=== PATIENT | female | born 2000 | race Caucasian/White ===

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

== ENCOUNTER 2022-04-07 10:39 | Inpatient (IN) | payer BC, MEDICAID ==
[2022-04-07] VITALS (29 sets, daily range): BP systolic 93–142; BP diastolic 51–87
[~2022-04-07] VITALS: Ht 177.8 cm; Wt 83.1 kg
[2022-04-07] MEDS ORDERED: fentaNYL INJ 100 MCG/2 ML AMP ONE ×3 (10:55→13:48)
[2022-04-07] MEDS ORDERED: WATER (STERILE) FOR INJECTION 20 ML ONE (11:08)
[2022-04-07] MEDS ORDERED: AMPICILLIN 2,000 MG/14.8 ML (IV USE) ONE (11:08)
[2022-04-07] MEDS ORDERED: D5 LR IV SOLUTION 1,000 ML IV ONE (11:08)
--- NOTE | 2022-04-07 11:11 | History & Physical-OB ---
OB - Chief Complaint & HPI Date/Time Date of Admission: Date of Admission: Apr 07, 2022 at 10:39 Date seen by a Provider: Apr 07, 2022 Time Seen by a Provider: 11:15 Chief Complaint/History OB-Reason for Admission/Chief: Onset of Labor Hx : 1 Hx Para: 0 Expected Date of Delivery: Mar 26, 2022 Gestational Age in Weeks: 41 Gestational Age in Days: 5 History of Labs O neg, antibody neg, RI. HIV/HepB/RPR NR. GC/chlamydia neg. GBS pos. Allergies and Home Medications Allergies Coded Allergies: No Known Drug Allergies (Unverified , 08/03/16) Patient Home Medication List Home Medication List Reviewed: Yes Discontinued Medications Cephalexin (Keflex) 500 Mg Capsule, 500 MG PO QID Prescribed by: RACHEL SMITH on 08/03/16620 Last Action: Discontinued Fluticasone Propionate (Fluticasone Propionate) 16 Gm [place].susp, (Reported) Entered as Reported by: CARMEN HUITRON on 08/03/16539 Last Action: Discontinued Hydroxyzine HCl (Hydroxyzine HCl) 25 Mg Tablet, (Reported) Entered as Reported by: CARMEN HUITRON on 08/03/16539 Last Action: Discontinued OB - History Hx of Present Care: Yes Ultrasounds: Normal mid trimester US Information Induced Hypertension: No Maternal Gestational Diabetes: No Obstetrical History Hx : 1 Hx Para: 0 Hx # Term Pregnancies: 0 Hx # Pregnancies: 0 Number of Living Children: 0 Hx Multiple Gestation: No Hx Ectopic : No Hx Stillbirth: No Hx Complication: No Hx Induced Hypertens: No Hx Maternal Gestational Diabet: No Delivery History Hx Blood Disorders: Yes (anemia) Adverse Rxn to Tranfusion: No Patient Past Medical History PMHx: Depression Anxiety IBS Gastric ulcer SurgHx: EGD Colonoscopy Social History/Family History Alcohol Use: Denies Use Recreational Drug Use: No Smoking Cessation: Former smoker Immunizations Tetanus Booster (TDap): Less than 5yrs (01/18/2022) Rubella: immune RPR/VDRL: Negative GBS Status: Positive HBsAG: Negative OB - Admission Exam Physical Exam HEENT: NCAT Abdomen: Gravid Cervical Dilatation: 6cm Effacement: Other (80) Station: -1 Membranes: Intact Heart Rate: 130's Accelerations: Accelerations Present Short Term Variability: Present [place] Variability: Average (6-25) Contractions on Admission: < 5 Minutes Apart OB - Assessment/Plan/Diagnosis Assessment Admission Dx Term intrauterine at 41 weeks and 5 days Active labor Group B strep carrier O negative blood type Admission Status: Inpatient Order (span 2 midnights) Reason for Inpatient Admission: Labor, delivery and postpatum course Plan Plan: Expectant Management, Other (ampicillin for GBS positive status) PRADIP DE ANDA MD Apr 07, 2022 11:11
[2022-04-07] MEDS ORDERED: AMPICILLIN FOR IV USE 2,000 MG in NS (IVPB) 50 ML IV SCH (11:26)
[2022-04-07] MEDS ORDERED: fentaNYL INJ 100 MCG/2 ML AMP IVP ONE ×2 (11:30→12:30)
[2022-04-07] MEDS ORDERED: D5 LR IV SOLUTION 1,000 ML IV SCH (11:30)
[2022-04-07] MEDS ORDERED: MINERAL OIL 30 ML UDC TOP PRN (11:30)
[2022-04-07 11:41] LABS: HEMATOCRIT 30 % (35-52); WHITE BLOOD COUNT 10.8 10^3/uL (4.3-11.0)
[2022-04-07 11:43] LABS: BASOPHILS # (AUTO) 0.1 10^3/uL (0.0-0.1); BASOPHILS % (AUTO) 1 % (0-10); EOSINOPHILS # (AUTO) 0.1 10^3/uL (0.0-0.3); EOSINOPHILS % (AUTO) 1 % (0-10); HEMOGLOBIN 9.3 g/dL (11.5-16.0); LYMPHOCYTES # (AUTO) 2.5 10^3/uL (1.0-4.0); LYMPHOCYTES % (AUTO) 23 % (12-44); MEAN CORPUSCULAR HEMOGLOBIN 21 pg (25-34); MEAN CORPUSCULAR HGB CONC 31 g/dL (32-36); MEAN CORPUSCULAR VOLUME 70 fL (80-99); MONOCYTES # (AUTO) 0.7 10^3/uL (0.0-1.0); MONOCYTES % (AUTO) 7 % (0-12); NEUTROPHILS # (AUTO) 7.3 10^3/uL (1.8-7.8); NEUTROPHILS % (AUTO) 68 % (42-75); PLATELET COUNT 201 10^3/uL (130-400)
[2022-04-07 11:45] LABS: SMEAR SCAN COMMENT YES
[2022-04-07] MEDS ORDERED: ONDANSETRON 4 MG/2 ML (SDV) Z0FRAN ONE (12:04)
[2022-04-07] MEDS ORDERED: ONDANSETRON 4 MG/2 ML (SDV) Z0FRAN IVP PRN (12:30)
[2022-04-07] MEDS ORDERED: fentaNYL 2 mcg/ml BUPIVA 0.125 100 ML ONE (13:32)
[2022-04-07] MEDS ORDERED: BUPIVACAINE 0.25% 30 ML (SENSORCAINE) VIAL ONE (13:48)
[2022-04-07] MEDS ORDERED: CATHETER FLUSH 10 ML SYR IV SCH ×2 (14:00→22:00)
[2022-04-07] MEDS ORDERED: LACTATED RINGERS 1,000 ML IV SCH (14:15)
[2022-04-07] MEDS ORDERED: fentaNYL 2 mcg/ml BUPIVA 0.125 100 ML EPI SCH (14:15)
[2022-04-07] MEDS ORDERED: ONDANSETRON 4 MG/2 ML (SDV) Z0FRAN IV PRN (14:15)
[2022-04-07] MEDS ORDERED: NALOXONE 0.4 MG/ML 1 ML (NARCAN) VIAL IV PRN ×2 (14:15)
[2022-04-07] MEDS ORDERED: diphenhydrAMINE 50 MG/ML INJ (BENADRYL) IV PRN (14:15)
[2022-04-07] MEDS ORDERED: METOCLOPRAMIDE INJ 10 MG/2 ML (REGLAN) IV PRN (14:15)
[2022-04-07] MEDS ORDERED: LIDOCAINE PF 2% 5 ML (XYLOCAINE) VIAL ONE (14:21)
[2022-04-07] MEDS ORDERED: OXYTOCIN PRE-MIX DRIP 500 ML IV ONE ×2 (15:12→16:31)
[2022-04-07] MEDS ORDERED: AMPICILLIN FOR IV USE 1,000 MG in NS (IVPB) 50 ML IV SCH (15:30)
[2022-04-07] MEDS: OXYTOCIN PRE-MIX DRIP 500 ML IV SCH ×2 (16:12→16:41)
[2022-04-07] MEDS ORDERED: LIDOCAINE/EPI 2% 1:200,00 (XYLOCAINE) 10 ML VIAL ONE (16:28)
--- NOTE | 2022-04-07 17:12 | OB Labor & Delivery Record ---
Vag Delivery Note Vag Delivery Note Date of Delivery: 04/07/22 Preoperative Diagnosis: Clara Huntley is a (21 /Para 1 / 0, Gestational Age (wks)41with 5 days Postoperative Diagnosis: Same Surgeon: PRADIP DE ANDA Anesthesia: Epidural Delivery Type: Findings: Viable female , apgars 7/9, weight 8#4 Lacerations: bilateral periurethral, bilateral first degree vaginal Intact placenta with 3 vessel cord. Tight nuchal cord x 1 delivered through. No body cord or shoulder dystocia Estimated Blood Loss: 250 ml Complications: None Condition: Stable Description of Procedure: The patient is a 21 year old female who presented in active labor. She was admitted and informed consent was obtained. Her labor course was remarkable for intermittent and at times prolonged bradycardia with pushing. She progressed to complete dilatation and began to push. She was then set up for delivery. The 's head was delivered atraumatically in the KECIA position. A tight nuchal cord was noted and not able to be easily reduced, so the shoulders and remainder of the infant's body were then delivered without difficulty by turning infant toward maternal left. Upon delivery, the was placed on maternal abdomen. The cord was doubly clamped and cut and the infant remained on maternal abdomen transitioning. An intact placenta with 3-vessel cord delivered via Estefany and there was found to be minimal bleeding.~ Vigorous fundal massage was performed and the fundus was found to be firm. IV oxytocin was given. Examination of the vagina and perineum revealed a bilateral periurethral laceration- the left periurethral was deep and repaired in simple running fashion and the right periurethral did not require repair; and bilateral vaginal sulcus first degree laceration repaired in the usual fashion with 3-0 vicryl rapide suture. Following the repair, sponge, instrument and needle counts were correct. Mom and baby were both in stable condition in the labor suite. Vitals - Labs Vital Signs - I&O Vital Signs Date Time Temp Pulse Resp B/P (MAP) Pulse Ox O2 Delivery O2 Flow Rate FiO2 04/07/22 15:15 35.8 74 22 105/62 (76) 100 Room Air 04/07/22 15:00 79 22 101/60 (74) 100 Room Air 04/07/22 14:45 57 22 108/73 (85) 100 Room Air 04/07/22 14:30 63 22 130/61 (84) 100 Room Air 04/07/22 14:15 35.7 47 22 115/58 (77) 99 Room Air 04/07/22 14:04 50 22 103/56 (72) 98 Room Air 04/07/22 14:02 65 22 116/72 (87) 99 Room Air 04/07/22 14:00 60 22 112/53 (72) 100 Room Air 04/07/22 14:00 75 22 122/59 (80) 100 Room Air 04/07/22 13:59 81 22 121/65 (83) 97 Room Air 04/07/22 13:58 70 22 122/59 (80) 100 Room Air 04/07/22 13:55 75 22 127/63 (84) 100 Room Air 04/07/22 13:30 69 22 138/87 (104) Room Air 04/07/22 13:00 73 22 132/70 (90) Room Air 04/07/22 12:30 36.1 78 22 141/79 (99) Room Air 04/07/22 12:00 74 22 132/82 (99) Room Air 04/07/22 10:50 36.4 81 20 142/80 (100) 100 Room Air Labs Laboratory Tests 04/07/22 11:00: White Blood Count 10.8, Red Blood Count 4.36, Hemoglobin 9.3L, Hematocrit 30L, Mean Corpuscular Volume 70L, Mean Corpuscular Hemoglobin 21L, Mean Corpuscular Hemoglobin Concent 31L, Red Cell Distribution Width 18.2H, Platelet Count 201, Mean Platelet Volume , Immature Granulocyte % (Auto) 0, Neutrophils (%) (Auto) 6 8, Lymphocytes (%) (Auto) 23, Monocytes (%) (Auto) 7, Eosinophils (%) (Auto) 1, Basophils (%) (Auto) 1, Neutrophils # (Auto) 7.3, Lymphocytes # (Auto) 2.5, Monocytes # (Auto) 0.7, Eosinophils # (Auto) 0.1, Basophils # (Auto) 0.1, Immature Granulocyte # (Auto) 0.0, Percent Immature Platelet Fraction 16.7H, Smear Scan YES PRADIP DE ANDA MD Apr 07, 2022 17:12
[2022-04-07] MEDS ORDERED: DOCUSATE SODIUM 100 MG (COLACE) CAP PO ONE (19:54)
[2022-04-07] MEDS ORDERED: IBUPROFEN 600 MG (MOTRIN) TAB PO ONE (19:54)
[2022-04-07] MEDS ORDERED: BENZOCAINE/MENTHOL (DERMOPLAST) 56 ML CAN TP PRN (20:00)
[2022-04-07] MEDS ORDERED: BENZOCAINE/MENTHOL (DERMOPLAST) 56 ML CAN TP ONE (20:12)
[2022-04-07] MEDS ORDERED: WITCH HAZEL(TUCKS) 40 EA JAR ONE (20:12)
[2022-04-07] MEDS: DOCUSATE SODIUM 100 MG (COLACE) CAP PO SCH (20:19)
[2022-04-07] MEDS: IBUPROFEN 600 MG (MOTRIN) TAB PO SCH (20:19)
[2022-04-07] MEDS: WITCH HAZEL(TUCKS) 40 EA JAR TOP PRN (20:19)
[2022-04-07] MEDS ORDERED: ACETAMINOPHEN 325 MG TABLET ONE (20:38)
[2022-04-07] MEDS: ACETAMINOPHEN 325 MG TABLET PO PRN (20:45)
[2022-04-08 00:53] VITALS: BP 121/63
[2022-04-08] MEDS: ACETAMINOPHEN 325 MG TABLET PO PRN ×3 (01:59→13:25)
[2022-04-08] MEDS: IBUPROFEN 600 MG (MOTRIN) TAB PO SCH ×4 (02:00→19:00)
[2022-04-08 04:41] VITALS: BP 123/72
[2022-04-08 04:49] LABS: BASOPHILS # (AUTO) 0.1 10^3/uL (0.0-0.1); BASOPHILS % (AUTO) 0 % (0-10); HEMOGLOBIN 8.4 g/dL (11.5-16.0)
[2022-04-08 04:51] LABS: EOSINOPHILS % (AUTO) 0 % (0-10); HEMATOCRIT 28 % (35-52); LYMPHOCYTES # (AUTO) 2.4 10^3/uL (1.0-4.0); LYMPHOCYTES % (AUTO) 17 % (12-44); MEAN CORPUSCULAR HEMOGLOBIN 21 pg (25-34); MEAN CORPUSCULAR HGB CONC 30 g/dL (32-36); MEAN CORPUSCULAR VOLUME 70 fL (80-99); MONOCYTES # (AUTO) 0.9 10^3/uL (0.0-1.0); MONOCYTES % (AUTO) 6 % (0-12); NEUTROPHILS # (AUTO) 10.9 10^3/uL (1.8-7.8); NEUTROPHILS % (AUTO) 76 % (42-75); PLATELET COUNT 184 10^3/uL (130-400); WHITE BLOOD COUNT 14.3 10^3/uL (4.3-11.0)
[2022-04-08 07:40] VITALS: BP 138/60
[2022-04-08] MEDS: FERROUS SULF 325 MG (IRON) TAB PO SCH (07:51)
[2022-04-08] MEDS: DOCUSATE SODIUM 100 MG (COLACE) CAP PO SCH ×2 (07:52→20:47)
--- NOTE | 2022-04-08 12:55 | Anesthesia-Regional Post-Op ---
Regional Patient Condition Mental Status: Alert, Oriented x3 Circulation: Same as Pre-Op Headache: Absent Sensation: Full Recovery Motor Block: Absent Post Op Complications Complications None Follow Up Care/Instructions Patient Instructions None needed. Anesthesia/Patient Condition Patient is doing well, no complaints, stable vital signs, no apparent adverse anesthesia problems. No complications reported per nursing. VIRY CRAFT CRNA Apr 08, 2022 12:55
[2022-04-08] MEDS ORDERED: IBUP-844 PO (13:46)
[2022-04-08] MEDS ORDERED: FERR325T24 PO (13:46)
[2022-04-08] MEDS ORDERED: DOCU100C37 PO (13:46)
--- NOTE | 2022-04-08 13:47 | Discharge Summary ---
Discharge Inst-[facility] Reconcile Patient Problems Problems Reviewed?: Yes Depart Medications New, Converted or Re-Newed RX: Transmitted to Pharmacy New Medications: Docusate Sodium (Docusate Sodium) 100 Mg Capsule 100 MG PO BID, #28 CAP Ferrous Sulfate (Ferosul) 325 Mg (65 Mg Iron) Tablet 325 MG PO DAILY, #30 TAB Ibuprofen (Ibu) 600 Mg Tablet 600 MG PO Q6HR, #90 TAB Follow Up/Instructions Goal/Follow Up: [address] Cardenas Activity Activity: Activity as Tolerated Driving Instructions: You May Drive NO SMOKING: NO SMOKING Nothing Inside Vagina: No Douching, No [place], No Tampons Diet Discharge Diet: No Restrictions Symptoms to Report to : Bleeding Excessive, Fever Over 101 Degrees F, Shortness of Breath Copies To 1: PRADIP CARDENAS MD, HOLLY R MD Apr 08, 2022 13:47
[2022-04-08 17:51] VITALS: BP 129/77
--- NOTE | 2022-04-08 19:18 | Postpartum Progress Note ---
Note Note Day # 1 Subjective: Ambulating, voiding. Tolerating a regular diet without nausea or vomiting. Normal lochia. She is having so perineal pain this AM. Notified nurse she is ready for pain medication and ice packs. Breast feeding well. Objective: Physical Exam: General - Alert and oriented, no apparent distress Abdomen - Soft, appropriately tender to palpation, non-distended, fundus firm at umbilicus Extremities - no edema, negative Jaelyn's bilaterally Assessment: 21 yo G1 now P1 post- day # 1, status post uncomplicated vaginal delivery with bilateral periurethral and vaginal lacerations Recovering well, hemodynamically stable Post Anemia Plan: Routine care. Encourage breast feeding. Encourage ambulation. Ferrous sulfate supplementation. Plan for discharge today with [address] Cardenas Vitals - Labs Vital Signs - I&O Vital Signs Date Time Temp Pulse Resp B/P (MAP) Pulse Ox O2 Delivery O2 Flow Rate FiO2 04/08/22 17:51 36.3 89 18 129/77 (94) 97 Room Air 04/08/22 07:40 36.6 68 18 138/60 (86) 99 Room Air 04/08/22 04:41 37.0 75 18 123/72 (89) 98 Room Air 04/08/22 00:53 37.1 62 16 121/63 (82) 98 Room Air 04/07/22 20:49 36.7 65 18 93/51 (65) 99 Room Air I & O 04/08/22 07:00 Intake Total 1864.8 ml Balance 1864.8 ml Labs Laboratory Tests 04/08/22 04:39: White Blood Count 14.3H, Red Blood Count 3.96, Hemoglobin 8.4L, Hematocrit 28L, Mean Corpuscular Volume 70L, Mean Corpuscular Hemoglobin 21L, Mean Corpuscular Hemoglobin Concent 30L, Red Cell Distribution Width 18.1H, Platelet Count 184, Mean Platelet Volume , Immature Granulocyte % (Auto) 0, Neutrophils (%) (Auto) 76H, Lymphocytes (%) (Auto) 17, Monocytes (%) (Auto) 6, Eosinophils (%) (Auto) 0, Basophils (%) (Auto) 0, Neutrophils # (Auto) 10.9H, Lymphocytes # (Auto) 2.4, Monocytes # (Auto) 0.9, Eosinophils # (Auto) 0.0, Basophils # (Auto) 0.1, Immature Granulocyte # (Auto) 0.1, Percent Immature Platelet Fraction 14.6H ANIA MONTERO MD Apr 08, 2022 19:18
[2022-04-08 20:40] VITALS: BP 127/83
[2022-04-08] MEDS: WITCH HAZEL(TUCKS) 40 EA JAR TOP PRN (20:47)
[2022-04-09] MEDS: IBUPROFEN 600 MG (MOTRIN) TAB PO SCH ×2 (00:04→06:10)
[2022-04-09 00:10] VITALS: BP 123/75
[2022-04-09] MEDS: ACETAMINOPHEN 325 MG TABLET PO PRN (02:51)
[2022-04-09 06:10] VITALS: BP 136/85
--- NOTE | 2022-04-09 08:16 | Discharge Summary ---
Diagnosis/Chief Complaint Date of Admission Apr 07, 2022 at 10:39 Date of Discharge 04/09/22 Admission Diagnosis Admission Diagnosis Third Trimester 41 weeks gestation Discharge Diagnosis Uncomplicated Periurethral and vaginal lacerations Post anemia with acute blood loss Discharge Summary-Simple/Stand Procedures Uncomplicated Discharge Physical Examination Allergies: Coded Allergies: No Known Drug Allergies (Unverified , 08/03/16) Vitals & I&Os Vital Sign - Last 12Hours Date Time Temp Pulse Resp B/P (MAP) Pulse Ox O2 Delivery O2 Flow Rate FiO2 04/09/22 06:10 36.8 96 18 136/85 (102) 98 Room Air General Appearance: Alert, Oriented X3, Cooperative, No Acute Distress HEENT: Mucous Memb Moist/[place] Respiratory: Clear to Auscultation, Normal Air Movement Cardiovascular: Regular Rate, No Murmurs Abdominal: Normal Bowel Sounds, Soft, No Tenderness, Other (Fundus firm and below umbilicus) Extremities: No Edema, No Tenderness/Swelling Neuro: Normal Speech Psych/Mental Status: Mental Status NL Hospital Course See final discharge diagnosis. Discussion & Recommendations 21 yo G1 now P1 mother delivered term female infant via uncomplicated @ 41 weeks. Post anemia will d/c on iron and PNV. Discharge Condition at discharge stable Instructions to patient/family Please see electronic discharge instructions given to patient. Discharge Medications Reviewed and agree with Discharge Medication list on patient's Discharge Instruction sheet Copy Copies To 1: PRADIP DE ANDA MD, HOLLY R MD Apr 09, 2022 08:16
[2022-04-09] MEDS: FERROUS SULF 325 MG (IRON) TAB PO SCH (08:25)
[2022-04-09] MEDS: DOCUSATE SODIUM 100 MG (COLACE) CAP PO SCH (08:26)
[2022-04-09 08:29] VITALS: BP 125/72
[2022-04-09 13:35] VITALS: BP 125/72
== END 2022-04-09 13:40 | disposition home or self-care (01) | DRG 806 ==
LOC: LDRP 10:39
PROVIDERS: ADMIT Family Medicine; ATTEND Family Medicine
PROC: 10E0XZZ Delivery of Products of Conception, External Approach (ICD-10-PCS; principal; 2022-04-07)
PROC: 0KQM0ZZ Repair Perineum Muscle, Open Approach (ICD-10-PCS; 2022-04-07)
PROC: 0UQMXZZ Repair Vulva, External Approach (ICD-10-PCS; 2022-04-07)
DX: O48.0 Post-term pregnancy (principal); O71.4 Obstetric high vaginal laceration alone; Z37.0 Single live birth; D62 Acute posthemorrhagic anemia; Z3A.41 41 weeks gestation of pregnancy; O99.824 Streptococcus B carrier state complicating childbirth; O71.82 Other specified trauma to perineum and vulva; O90.81 Anemia of the puerperium
CPT/HCPCS: 36415; 83033; 85025; 86850; 86900; 86901; 99212